=== PATIENT | male | born 1985 | race Caucasian/White ===

== ENCOUNTER 2016-10-20 20:40 | Emergency (ER) | payer OTHER ==
[~2016-10-20] VITALS: Ht 182.9 cm; Wt 91.0 kg
[2016-10-20 23:13] LABS: ADD MIUA? NO; BILIRUBIN NEGATIVE; BLOOD NEGATIVE; COLOR STRAW ((YELLOW)); GLUCOSE (STRIP) NEGATIVE; KETONES NEGATIVE; LEUKOCYTES NEGATIVE; NITRITE NEGATIVE; PROTEIN (STRIP) NEGATIVE; SPECIFIC GRAVITY 1.006 (1.000-1.030); UCUL ADDED? NO; UROBILINOGEN 0.2 MG/DL (0.2-1.0)
[2016-10-20 23:47] LABS: HEMATOCRIT 43.1 % (38.0-50.0); MCH 29.9 PG (29.0-34.0); MCHC 33.9 G/DL (30.0-36.0); MCV 88.3 FL (86-99); PLATELET COUNT 265 K/uL (156-360); RBC DIS.WIDTH-CV 13.6 % (11.8-14.6); RED BLOOD COUNT 4.88 M/uL (4.00-5.50); WHITE BLOOD COUNT 7.6 K/uL (4.1-10.2)
[2016-10-20 23:56] LABS: CHLORIDE 106 mEq/L (99-109); POTASSIUM 4.1 mEq/L (3.7-5.4); SODIUM 142 mEq/L (136-147)
[2016-10-20 23:58] LABS: GLUCOSE 96 mg/dL (70-99)
[2016-10-21] LABS: ANION GAP 10 MEQ/L (2-14)
[2016-10-21 00:01] LABS: TOTAL BILIRUBIN 0.5 mg/dL (0.0-1.0)
[2016-10-21 00:02] LABS: ALKALINE PHOSPHATASE 65 IU/L (3-129); GFR ESTIMATE (CALCULATED) > 59 mL/min/
[2016-10-21 00:03] LABS: UREA NITROGEN (BUN) 16 mg/dL (9-23)
[2016-10-21] MEDS ORDERED: VIBRAMYCIN100 MG PO (00:19)
[2016-10-21 00:35] VITALS: BP 131/81
== END 2016-10-21 00:38 | disposition home or self-care (01) ==
LOC: EME 20:40 → EXP 20:40
PROVIDERS: Physician Assistant
DX: R59.0 Localized enlarged lymph nodes (principal)
CPT/HCPCS: 80053; 81003; 85027; 99281; 99283